=== PATIENT | male | born 1940 | race Asian ===

== ENCOUNTER 2024-01-04 14:35 | Emergency (ER) | payer MEDICARE, OTHER ==
[~2024-01-04] VITALS: Ht 172.7 cm; Wt 70.0 kg
[2024-01-04 14:43] VITALS: TEMP 98.6; O2SAT 100
[2024-01-04] MEDS ORDERED: ACET-2708 MT (18:03)
[2024-01-04 19:14] VITALS: BP 128/76; PULSE 98; RESP 18
== END 2024-01-04 19:23 | disposition home or self-care (01) ==
LOC: ER 14:35
DX: M25.531 Pain in right wrist (principal); I10 Essential (primary) hypertension
CPT/HCPCS: 73110; 99283